=== PATIENT | male | born 1950 | race Caucasian/White ===

== ENCOUNTER 2023-02-22 14:52 | Emergency (ER) | payer BC ==
[~2023-02-22] VITALS: Ht 172.7 cm; Wt 72.6 kg
[2023-02-22 15:55] VITALS: O2SAT 100
[2023-02-22] MEDS ORDERED: LIDOCAINE HCL 1% LOCAL INJ 20 ML VIAL INJ ONE (16:15)
== END 2023-02-22 18:30 | disposition home or self-care (01) ==
LOC: ER 16:59
DX: S01.112A Laceration without foreign body of left eyelid and periocular area, initial encounter (principal); W20.8XXA Other cause of strike by thrown, projected or falling object, initial encounter; Y92.89 Other specified places as the place of occurrence of the external cause; I10 Essential (primary) hypertension
CPT/HCPCS: 70450; 99282